=== PATIENT | female | born 1985 | race African-American/Black ===

== ENCOUNTER 2017-11-12 10:28 | Emergency (ER) | payer SELFPAY ==
[~2017-11-12] VITALS: Ht 182.9 cm; Wt 81.6 kg
--- NOTE | 2017-11-12 10:40 | NUR ---
Dr Barahona at the bedside for MSE.
[2017-11-12] MEDS ORDERED: estrogen (10:41)
[2017-11-12] MEDS ORDERED: BIRTH CONTROL MEDS (10:41)
--- NOTE | 2017-11-12 10:49 | NUR ---
YOSELIN w/ Pt for report.
[2017-11-12 11:07] LABS: *BLOOD, URINE 1+ (NEGATIVE); *CLARITY,URINE CLEAR (CLEAR); *COLOR,URINE YELLOW (YELLOW); *KETONES,URINE 2+ (NEGATIVE); *PROTEIN,URINE 2+ (NEGATIVE); LEUKOCYTE ESTERASE ,URINE 2+ (NEGATIVE); NITRITE, URINE NEGATIVE (NEGATIVE); PH,URINE 6.5 (5.0-8.0); UGLUCOSE NEGATIVE (NEGATIVE)
[2017-11-12 11:15] LABS: *BILIRUBIN,URIN 2+ (NEGATIVE)
[2017-11-12] MEDS ORDERED: LORAZEPAM 0.5 MG TABLET PO ONE ×2 (11:15→12:15)
[2017-11-12] MEDS ORDERED: OLANZAPINE ZYDIS 5 MG TAB.RAPDIS PO ONE (11:15)
[2017-11-12] MEDS ORDERED: OLANZAPINE ZYDIS 5 MG TAB.RAPDIS PO SCH (11:15)
[2017-11-12 11:16] LABS: *URINE HCG, QUAL NEGATIVE (NEGATIVE)
[2017-11-12] MEDS ORDERED: LORAZEPAM 1 MG TABLET ONE ×2 (11:25→12:27)
[2017-11-12 11:34] LABS: *AMPHETAMINE, URINE POSITIVE (NEGATIVE); *BARBITURATE, URINE NEGATIVE (NEGATIVE); *CANNABINOID, URINE NEGATIVE (NEGATIVE); *COCCAINE, URINE NEGATIVE (NEGATIVE); *OPIATE, URINE NEGATIVE (NEGATIVE); *PHENCYCLIDINE SCREEN,URINE NEGATIVE (NEGATIVE)
[2017-11-12 11:56] LABS: BACTERIA,URINE FEW /HPF (NONE SEEN); SQUAMOUS EPITHELIAL CELL,UR FEW /HPF (NONE SEEN); WBC,URINE 20-50 /HPF (0-3)
[2017-11-12 11:57] LABS: MUCUS,URINE FEW /LPF (0-FEW)
--- NOTE | 2017-11-12 13:15 | NUR ---
Patient is resting comfortably in bed with eyes closed, NAD noted.
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
--- NOTE | 2017-11-12 17:03 | NUR ---
Resource info provided by Chela psych social worker. Pt states feeling better and wishes to be discharge.
--- NOTE | 2017-11-12 17:14 | NUR ---
Patient discharged in stable conditon. Written and verbal after care instructions given. Patient verbalizes understanding of instructions. Pt left ER w/ steady gait.
[2017-11-12 17:15] VITALS: BP 121/68
== END 2017-11-12 17:16 | disposition home or self-care (01) ==
LOC: ER 10:28
DX: T74.21XA Adult sexual abuse, confirmed, initial encounter (principal); F15.10 Other stimulant abuse, uncomplicated
CPT/HCPCS: 36415; 80307; 84703; 86592; 87806; A4663